=== PATIENT | male | born 1990 | race Two or more races ===

== ENCOUNTER 2023-05-27 17:25 | Emergency (ER) | payer SELFPAY ==
[2023-05-27] MEDS: IBUPROFEN 600 MG TABLET PO ONE (21:49)
[2023-05-27] MEDS ORDERED: SULF-261 PO (22:03)
[2023-05-27] MEDS ORDERED: CEPH-558 PO (22:03)
[2023-05-27] MEDS: LIDOCAINE/PF 1% 2 ML VIAL IM ONE (22:06)
[2023-05-27] MEDS: CefTRIAXone SODIUM 1 GM/VIAL IM ONE (22:06)
[2023-05-27 22:14] VITALS: BP 136/81; PULSE 78; RESP 17
== END 2023-05-27 22:20 | disposition home or self-care (01) ==
LOC: EMS 17:25
DX: L03.115 Cellulitis of right lower limb (principal); F15.10 Other stimulant abuse, uncomplicated
CPT/HCPCS: 99283; 73630; 96372; J0696; J3490

== ENCOUNTER 2023-05-29 20:43 | Emergency (ER) | payer MEDICAID ==
[~2023-05-29] VITALS: Ht 175.3 cm; Wt 68.2 kg
[~2023-05-29 20:43] MED LIST: CEPH-558 PO; SULF-261 PO
[2023-05-29 21:16] VITALS: BP 107/56; PULSE 85; RESP 16; TEMP 98.1
[2023-05-29] MEDS: LIDOCAINE 1% 10 ML VIAL SQ ONE (23:08)
[2023-05-29] MEDS ORDERED: CEPH-558 PO (23:53)
== END 2023-05-30 00:14 | disposition home or self-care (01) ==
LOC: EMS 21:13
DX: L02.611 Cutaneous abscess of right foot (principal); F17.210 Nicotine dependence, cigarettes, uncomplicated; F15.90 Other stimulant use, unspecified, uncomplicated; F12.90 Cannabis use, unspecified, uncomplicated
CPT/HCPCS: 10060; 99282; J3490